=== PATIENT | female | born 1990 | race American Indian/Alaskan Native ===

== ENCOUNTER 2020-09-04 14:34 | Outpatient (CLI) | payer MEDICAID ==
[2020-09-04 14:57] VITALS: BP 119/57
[2020-09-04] MEDS ORDERED: LACTATED RINGERS 1,000 ML IV ONE (16:00)
[2020-09-04 17:21] LABS: Bacteria,Urine 2+ /HPF (Negative); Bilirubin,Urine NEG (Negative); Blood,Urine NEG (Negative); Color,Urine Yellow (Yellow); Mucus,Urine 1+ /HPF; Urobilinogen,Urine < 2.0 mg/dL (<2.0)
--- NOTE | 2020-09-04 18:11 | Ultrasound Report ---
ULTRASOUND OBSTETRIC LIMITED ULTRASOUND BIOPHYSICAL PROFILE INDICATION / CLINICAL INFORMATION: BPP/FILOMENA/PLACENTA LOCATION.. Clinical Gestational Age (GA) in weeks, days: 24 weeks 3 days TECHNIQUE: Transabdominal. COMPARISON: None available. FINDINGS: BREATHING MOVEMENT = 2 GROSS BODY MOVEMENT = 2 TONE = 2 QUALITATIVE AMNIOTIC FLUID VOLUME = 2 TOTAL BIOPHYSICAL SCORE = 8/8 HEART RATE (beats per minute): 149 AMNIOTIC FLUID INDEX (cm) = 13.8 (normal = 7-24 cm) PRESENTATION: Cephalic. ADDITIONAL FINDINGS: Placenta is located within the fundus. No previa or abruption. IMPRESSION: 1. Biophysical Score = 8/8 2. Single viable IUP in a cephalic presentation with normal FILOMENA. 3. Placental location is fundal. Signer Name: Priscilla Gr MD Signed: 09/04/2020 6:06 PM Workstation Name: [id number]
== END 2020-09-04 18:10 | disposition home or self-care (01) ==
LOC: TRG 14:34 → APU 14:35 → TRG 18:10
PROVIDERS: ATTEND Obstetrics & Gynecology
DX: O26.852 Spotting complicating pregnancy, second trimester (principal); O47.02 False labor before 37 completed weeks of gestation, second trimester; Z3A.24 24 weeks gestation of pregnancy
CPT/HCPCS: 59025; 76815; 76819; 81001; 87086; 96360; 96361; J7120

== ENCOUNTER 2020-11-25 21:04 | Outpatient (CLI) | payer MEDICAID ==
[2020-11-25 21:27] VITALS: BP 118/64
[2020-11-25 22:44] LABS: Bacteria,Urine 1+ /HPF (Negative); Bilirubin,Urine NEG (Negative); Blood,Urine NEG (Negative); Color,Urine Yellow (Yellow); Mucus,Urine 2+ /HPF; Protein,Urine <15 mg/dL mg/dL (Negative); Urobilinogen,Urine < 2.0 mg/dL (<2.0)
== END 2020-11-25 23:05 | disposition home or self-care (01) ==
LOC: TRG 21:04 → APU 21:05 → TRG 23:05
PROVIDERS: ATTEND Obstetrics & Gynecology
DX: O47.03 False labor before 37 completed weeks of gestation, third trimester (principal); Z3A.36 36 weeks gestation of pregnancy
CPT/HCPCS: 59025; 81001

== ENCOUNTER 2020-12-08 06:37 | Inpatient (IN) | payer MEDICAID ==
[2020-12-08] MEDS ORDERED: AMPICILLIN/NS 2 GM/100 ML 2 GM/100 ML BAG IV ONE (07:57)
[2020-12-08] MEDS ORDERED: BUTORPHANOL 2 MG/1 ML INJ IV PRN ×2 (07:57→08:00)
[2020-12-08] MEDS ORDERED: TERBUTALINE 1 MG/1 ML INJ SUB-Q PRN (07:57)
[2020-12-08] MEDS ORDERED: LIDOCAINE (2%) 20 MG/1 ML VIAL 20 ML MDV INFILTRATI NR (07:57)
[2020-12-08] MEDS ORDERED: OXYTOCIN DRIP 30 UNITS/500 ML BAG IV SCH ×3 (08:00→10:00)
[2020-12-08] MEDS ORDERED: LACTATED RINGERS 1,000 ML IV SCH (08:00)
[2020-12-08] MEDS ORDERED: fentaNYL 100 MCG/2 ML INJ IV PRN (08:00)
[2020-12-08] MEDS ORDERED: ePHEDrine SULFATE 50 MG/1 ML INJ IV PRN (08:30)
--- NOTE | 2020-12-08 08:57 | History and Physical Report ---
History of Present Illness Date of examination: 12/08/20 Date of admission: 12/08/20 Chief complaint: Pt with c/o uc since 3am History of present illness: 30 y/o presents to [facility] @ 38.2 wks with c/o uc since 3am. She denies LOF or VB, and admits to active FM. Pt states she initiated her pnc @ 31 3/7 wks @ [facility] location. She was sent to [facility] r/t absent nasal bone per us, and intracardiac left sided echogenic focus. Pt reports hx of bronchitis with last attack 5 yrs ago. Hx of 1 c/s r/t breech. Pt is interested in a TOLAC. GBS is neg. She was admitted to L&D for delivery. Past History Past Medical History: other (bronchitis) Past Surgical History: section Family/Genetic History: cancer Social history: single, full code - Obstetrical History Expected Date of Delivery: 12/20/20 Actual Gestation: 38 Week(s) 2 Day(s) : 4 Para: 2 Hx # Term Pregnancies: 2 Number of Pregnancies: 0 Spontaneous Abortions: 1 Induced : 0 Number of Living Children: 2 Medications and Allergies Allergies Allergy/AdvReac Type Severity Reaction Status Date / Time latex Allergy Swelling Verified 09/16/14 13:16 Home Medications Medication Instructions Recorded Confirmed Last Taken Type Vit 10/Iron/Folic/Dha 1 each PO DAILY 09/16/14 09/04/20 09/04/20 10:00 History [Vitafol-Ob+Dha Combo Pack] 1 Active Meds: Active Medications Butorphanol Tartrate (Butorphanol 2 Mg/1 Ml Inj) 1 mg IV Q2H PRN PRN Reason: Pain, Moderate(4-6) LABOR PAIN Butorphanol Tartrate (Butorphanol 2 Mg/1 Ml Inj) 2 mg IV Q2H PRN PRN Reason: Pain , Severe (7-10) Ephedrine Sulfate (Ephedrine Sulfate 50 Mg/1 Ml Inj) 10 mg IV Q2M PRN PRN Reason: Hypotension Fentanyl (Fentanyl 100 Mcg/2 Ml Inj) 100 mcg IV Q2H PRN PRN Reason: Pain,Severe (7-10) LABOR PAIN Oxytocin/Sodium Chloride (Pitocin/Ns 30 Unit/500ml) 30 units in 500 mls @ 2 mls/hr IV TITR ABHINAV; Protocol Lactated Ringer's (Lactated Ringers) 1,000 mls @ 125 mls/hr IV DIRECT ABHINAV Oxytocin/Sodium Chloride (Pitocin/Ns 30 Unit/500ml) 30 units in 500 mls @ 40 mls/hr IV TITR ABHINAV; Protocol Ampicillin Sodium (Ampicillin/Ns 2 Gm/100 Ml) 2 gm in 100 mls @ 100 mls/hr IV ONCE ONE; Protocol Stop: 12/08/20 08:56 Ampicillin Sodium (Ampicillin/Ns 1 Gm/50 Ml) 1 gm in 50 mls @ 100 mls/hr IV Q4H ABHINAV; Protocol Lidocaine (Lidocaine (2%) 20 Mg/1 Ml Vial 20 Ml Mdv) 20 ml INFILTRATI ONCE ONE Stop: 12/08/20 07:58 Mineral Oil (Mineral Oil 30 Ml Oral Liqd) 30 ml PO QHS PRN PRN Reason: Constipation Miscellaneous Medication ( Vit 10/Iron/Folic/Dha [Vitafol-Ob+Dha Combo Pack]) 1 each PO DAILY ABHINAV Terbutaline Sulfate (Terbutaline 1 Mg/1 Ml Inj) 0.25 mg SUB-Q ONCE PRN PRN Reason: Hyperstimulation/Hypertonicity Review of Systems All systems: negative Eyes: deferred Ears, nose, mouth and throat: deferred Breasts: normal Genitourinary: normal appearance Rectal Exam: deferred - Vital Signs Vital signs: Vital Signs Pulse Pulse Ox 92 H 99 12/08/20 07:00 12/08/20 07:00 Temp Pulse Resp BP Pulse Ox 98.5 F 81 18 128/64 98 12/08/20 07:02 12/08/20 07:55 12/08/20 07:02 12/08/20 07:17 12/08/20 07:55 - Physical Exam Breasts: Positive: normal Abdomen: Positive: normal appearance, soft, normal bowel sounds, other (gravid) Genitourinary (Female): Positive: normal external genitalia, normal perenium Vulva: both: normal Vagina: Positive: normal moisture Uterus: Positive: enlarged, normal contour, other (gravid) Adnexa: both: normal Anus/Rectum: Positive: normal perianal skin Extremities: Positive: normal - Obstetrical FHR: auscultation normal, category 1 Uterine Contraction Monitor Mode: External Cervical Dilatation: 5 Cervical Effacement Percentage: 90 station: -3 Uterine Contraction Pattern: Regular Uterine Tone Measurement Phase: Resting Uterine Contraction Intensity: Moderate Results Result Diagrams: 12/08/20 08:42 All other labs normal. Assessment and Plan A: IUP@ 38.2 wks Previous C/S (breech) PNC initiated @ 31 3/7 wks Intracardic left sided echogenic focus US noted nasal bone could not be identified SMA carrier Bronchitis P: Admit to L&D Continuous monitoring Start Pitocin per protocal Pain med/epidural prn Consult re TOLAC Notify NICU of status Anticipate [facility] - Patient Problems (1) Supervision of normal IUP (intrauterine ) in multigravida Current Visit: Yes Status: Acute
[2020-12-08 09:15] LABS: Hematocrit 33.5 % (30.3-42.9); Hemoglobin 11.2 gm/dl (10.1-14.3); Mean Corpuscular HGB Conc 33 % (30-34); Mean Corpuscular Volume 88 fl (79-97); Platelet Count 278 K/mm3 (140-440); Red Blood Count 3.82 M/mm3 (3.65-5.03); Red Cell Distribution Width 14.8 % (13.2-15.2)
[2020-12-08] MEDS ORDERED: OXYTOCIN 10 UNIT/1 ML INJ ONE (09:20)
--- NOTE | 2020-12-08 09:42 | Procedure Note ---
OB Delivery Note - Delivery Date of Delivery: 12/08/20 Surgeon: YUSUF BREAUX Estimated blood loss: 200cc - Vaginal Delivery presentation: vertex Delivery position: OA Intrapartum events: meconium (thick- toni present for delivery) Delivery induction: none Delivery monitor: external FHT Route of delivery: Delivery placenta: spontaneous Delivery cord: nuchal cord (loose x 2) Episiotomy: none Delivery laceration: none Anesthesia: none Delivery comments: Prior to delivery, patient spontaneously ruptured for thick meconium. Patient verbally consented for . Risk, benefits and alternatives to discussed with the patient and patient verbally agreed to proceed with a . Anterior shoulder delivered without difficulty. Nuchal cords x 2 reduced. Baby bulb suctioned at the perineum and again after delivery. Cord clamped and cut. Baby to the warmer. Placenta delivered spontaneously and was delivered in its entirety. Good hemostasis throughout. Mother and baby stable. - Infant A at 1 minute: 8 at 5 minutes: 9 Infant Gender: Male
[2020-12-08] MEDS ORDERED: METHYLERGONOVINE MALEATE 0.2 MG/ML VIAL IM PRN (09:43)
[2020-12-08] MEDS ORDERED: WITCH HAZEL/ GLYCERIN PAD TP PRN (10:00)
[2020-12-08] MEDS ORDERED: LANOLIN/ZINC/DIMETHICONE (LANSINOH) 7 GM TP PRN (10:00)
[2020-12-08] MEDS ORDERED: diphenhydrAMINE 25 MG CAP PO PRN (10:00)
[2020-12-08] MEDS ORDERED: BENZOCAINE/MENTHOL 20/0.5% TOP SPRAY 56 GM TP PRN (10:00)
[2020-12-08] MEDS ORDERED: PROMETHAZINE 25 MG TAB PO PRN (10:00)
[2020-12-08] MEDS ORDERED: ONDANSETRON 4 MG/2 ML INJ IV PRN (10:00)
[2020-12-08] MEDS ORDERED: PROMETHAZINE 25 MG RECT SUPP PR PRN (10:00)
[2020-12-08] MEDS ORDERED: oxyCODONE /ACETAMINOPHEN 5-325MG TAB PO PRN (10:00)
[2020-12-08] MEDS ORDERED: AMPICILLIN/NS 1 GM/50 ML 1 GM/50 ML BAG IV SCH (12:00)
[2020-12-08] MEDS: IBUPROFEN 600 MG TAB PO SCH ×2 (13:10→22:27)
[2020-12-08] MEDS ORDERED: MAGNESIUM HYDROXIDE (MOM) ORAL LIQD UDC PO PRN (22:00)
[2020-12-08] MEDS ORDERED: MINERAL OIL 30 ML ORAL LIQD PO PRN (22:00)
--- NOTE | 2020-12-09 05:47 | Progress Note ---
Assessment and Plan A: PP Day #1 Stable P: Follow Routine Orders D/C home in the AM RTO in 6 Weeks Subjective - Subjective Date of service: 12/09/20 Patient reports: appetite normal, voiding normally, pain well controlled, flatus, ambulating normally [place]: doing well, bottle feeding (and ) Objective - Vital Signs Latest vital signs: Vital Signs Temp Pulse Resp BP BP Pulse Ox 12/09/20 00:00 98.4 F 73 16 119/78 12/08/20 22:27 18 12/08/20 19:30 98.6 F 74 18 114/78 12/08/20 16:53 98.1 F 80 18 118/52 97 12/08/20 11:40 98.1 F 72 18 121/51 98 12/08/20 10:47 72 108/58 12/08/20 10:33 75 116/61 12/08/20 10:17 76 118/55 12/08/20 10:03 80 107/55 12/08/20 09:47 83 120/57 12/08/20 09:42 83 118/59 12/08/20 08:26 75 131/61 12/08/20 07:55 81 98 12/08/20 07:50 78 91 12/08/20 07:45 81 99 12/08/20 07:44 83 93 12/08/20 07:40 83 98 12/08/20 07:35 80 99 12/08/20 07:30 79 98 12/08/20 07:25 80 97 12/08/20 07:20 83 100 12/08/20 07:17 83 128/64 12/08/20 07:15 86 100 12/08/20 07:10 82 100 12/08/20 07:05 75 99 12/08/20 07:02 98.5 F 86 18 128/64 99 12/08/20 07:00 92 H 99 Intake and Output 12/08/20 12/08/20 12/09/20 14:59 22:59 06:59 Intake Total 900 300 Balance 900 300 Intake: Oral 360 Intake, Free Water 540 300 Other: Total, Intake Amount 360 # Voids Void 1 1 Weight 95.254 kg Estimated Blood Loss 200 Patient Weight 12/09/20 06:59 Weight 95.254 kg - Exam Breasts: Present: normal Cardiovascular: Present: Regular rate Lungs: Present: Clear to auscultation, Normal air movement Abdomen: Present: normal appearance, soft, normal bowel sounds Uterus: Present: normal, firm, fundal height below umbilicus Extremities: Present: normal
--- NOTE | 2020-12-09 05:49 | Discharge Summary ---
Providers - Providers Date of Admission: 12/08/20 06:38 Date of discharge: 12/10/20 Attending physician: YOBANY HORAN JR, MD Primary care physician: YOBANY HORAN JR, MD Hospitalization Reason for admission: active labor Delivery: Episiotomy: none Laceration: none Other procedures: none complications: none Discharge diagnosis: IUP at term delivered Condition at discharge: Good Disposition: DC-01 TO HOME OR SELFCARE Plan - Provider Discharge Summary Activity: routine, no sex for 6 weeks, no heavy lifting 4 weeks, no strenuous exercise Diet: routine Instructions: routine Additional instructions: [] Smoking cessation referral if applicable(refer to patient education folder for contact #) [] Refer to [facility] Booklet Call your doctor immediately for: * Fever > 100.5 * Heavy vaginal bleeding ( >1 pad per hour) * Severe persistent headache * Shortness of breath * Reddened, hot, painful area to leg or breast * Drainage or odor from incision. * Keep incision clean and dry at all times and follow doctor's instructions regarding bathing/showering - Follow up plan Follow up: YOBANY HORAN JR, MD [Primary Care Provider] - 6 Weeks
[2020-12-09] MEDS: IBUPROFEN 600 MG TAB PO SCH (05:50)
[2020-12-09 08:59] LABS: Hemoglobin 9.6 gm/dl (10.1-14.3)
[2020-12-09] MEDS ORDERED: PRENATAL VIT PO SCH (10:00)
[2020-12-09] MEDS ORDERED: FOLIC PO SCH (10:00)
[2020-12-09] MEDS ORDERED: IRON PO SCH (10:00)
[2020-12-09] MEDS ORDERED: PRENATAL VIT27-FE FUMARATE-FOLIC ACID VIT TAB PO SCH (10:00)
[2020-12-09] MEDS ORDERED: DHA PO SCH (10:00)
[2020-12-09] MEDS ORDERED: [UNRECOGNIZED DRUG - OTHER] PO SCH (10:00)
[2020-12-09 16:59] VITALS: BP 115/74
== END 2020-12-09 18:28 | disposition home or self-care (01) | DRG 775 ==
LOC: TRG 06:37 → LD 06:37 → APU 06:38 → TRG 07:57 → OB 11:46
PROVIDERS: ADMIT Obstetrics & Gynecology; ATTEND Obstetrics & Gynecology
PROC: 10E0XZZ Delivery of Products of Conception, External Approach (ICD-10-PCS; principal; 2020-12-08)
DX: O77.0 Labor and delivery complicated by meconium in amniotic fluid (principal); O34.211 Maternal care for low transverse scar from previous cesarean delivery; O69.1XX0 Labor and delivery complicated by cord around neck, with compression, not applicable or unspecified; J40 Bronchitis, not specified as acute or chronic; O99.52 Diseases of the respiratory system complicating childbirth; Z20.822 Contact with and (suspected) exposure to COVID-19; Z3A.38 38 weeks gestation of pregnancy; Z37.0 Single live birth; Z80.9 Family history of malignant neoplasm, unspecified
CPT/HCPCS: 36415; 59025; 85014; 85018; 85027; 86850; 86900; 86901; G0378; J0290; J7120; U0003

== ENCOUNTER 2020-12-17 18:11 | Emergency (ER) | payer MEDICAID ==
[2020-12-17 19:22] VITALS: BP 136/88
[2020-12-17 19:49] LABS: Basophils # (Auto) 0.1 K/mm3 (0.0-0.1); Basophils % (Auto) 0.6 % (0.0-1.8); Eosinophils # (Auto) 0.9 K/mm3 (0.0-0.4); Hematocrit 36.9 % (30.3-42.9); Hemoglobin 12.1 gm/dl (10.1-14.3); Lymphocytes # (Auto) 1.5 K/mm3 (1.2-5.4); Lymphocytes % (Auto) 17.7 % (13.4-35.0); Mean Corpuscular HGB Conc 33 % (30-34); Mean Corpuscular Volume 89 fl (79-97); Monocytes # (Auto) 0.8 K/mm3 (0.0-0.8); Monocytes % (Auto) 8.8 % (0.0-7.3); Platelet Count 353 K/mm3 (140-440); Red Blood Count 4.13 M/mm3 (3.65-5.03); Red Cell Distribution Width 15.5 % (13.2-15.2)
[2020-12-17 20:12] LABS: Alanine Aminotransferase 12 units/L (7-56); Albumin 3.6 g/dL (3.9-5); BUN/Creatinine Ratio 9; Blood Urea Nitrogen 8 mg/dL (7-17); Calcium 8.4 mg/dL (8.4-10.2); Hemolysis Index 16
--- NOTE | 2020-12-17 20:15 | Event Note ---
ED Screening Note Date of service: 12/17/20 Time: 20:11 ED Screening Note: Patient is a A1 30 yo AA female who is 10 days post- presents to the ED with c/o acute onset persistent generalized headache, generalized body aches and "heaviness", blurry vision and lightheadedness for the last 10 days. Patient denies vision loss, syncope, chest pain, dyspnea, abdominal pain, fever and chills or seizures. Physical exam is unremarkable. This initial assessment/diagnostic orders/clinical plan/treatment(s) is/are subject to change based on patients health status, clinical progression and re- assessment by fellow clinical providers in the ED. Further treatment and workup at subsequent clinical providers discretion. Patient/guardian urged not to elope from the ED as their condition may be serious if not clinically assessed and managed. Initial orders include: CBC, CMP, UA
[2020-12-17 21:22] LABS: Bilirubin,Urine NEG (Negative); Blood,Urine LG (Negative); Color,Urine Yellow (Yellow); Mucus,Urine 1+ /HPF; Protein,Urine <15 mg/dL mg/dL (Negative); Urobilinogen,Urine < 2.0 mg/dL (<2.0)
--- NOTE | 2020-12-17 23:20 | Emergency Department Report ---
ED General Adult HPI - General Chief complaint: Medical Clearance Stated complaint: OB FOR POSSIBLE PRE ECLAMPSIA Time Seen by Provider: 12/17/20 20:16 Source: patient Mode of arrival: Ambulatory Limitations: No Limitations - History of Present Illness Initial comments: Patient is a A1 30 yo AA female who is 10 days post- presents to the ED with c/o acute onset persistent generalized headache, generalized body aches and "heaviness", blurry vision and lightheadedness for the last 10 days. Patient also states that her blood pressure was slightly elevated from her usual blood pressure although it was not high. Patient states that she was advised to come to the ED for evaluation to rule out preeclampsia. Patient denies vision loss, syncope, chest pain, dyspnea, abdominal pain, fever and chills or seizures. Physical exam is unremarkable. MD Complaint: Headache, lightheadedness -: Sudden, days(s) (10) Location: head Radiation: non-radiation Severity scale (0 -10): 2 Quality: dull Consistency: intermittent Improves with: none Worsens with: none Associated Symptoms: denies other symptoms, headaches, malaise. denies: confusion, chest pain, cough, diaphoresis, fever/chills, loss of appetite, rash, seizure, shortness of breath, syncope, weakness, other Treatments Prior to Arrival: none - Related Data Home Medications Medication Instructions Recorded Confirmed Last Taken Vit 10/Iron/Folic/Dha 1 each PO DAILY 09/16/14 12/08/20 09/04/20 10:00 [Vitafol-Ob+Dha Combo Pack] 1 Allergies Allergy/AdvReac Type Severity Reaction Status Date / Time latex Allergy Swelling Verified 12/08/20 13:12 ED Review of Systems ROS: Stated complaint: OB FOR POSSIBLE PRE ECLAMPSIA Other details as noted in HPI Constitutional: denies: chills, fever Eyes: denies: eye pain, eye discharge, vision change ENT: denies: ear pain, throat pain Respiratory: denies: cough, shortness of breath, wheezing Cardiovascular: denies: chest pain, palpitations Endocrine: no symptoms reported Gastrointestinal: denies: abdominal pain, nausea, vomiting, diarrhea Genitourinary: denies: urgency, dysuria, discharge Musculoskeletal: denies: back pain, joint swelling, arthralgia Skin: denies: rash, lesions Neurological: headache, other (lightheadedness). denies: weakness, paresthesias Psychiatric: anxiety. denies: depression Hematological/Lymphatic: denies: easy bleeding, easy bruising ED Past Medical Hx - Past Medical History Hx Hypertension: No Hx Congestive Heart Failure: No Hx Diabetes: No Hx Deep Vein Thrombosis: No Hx Renal Disease: No Hx Sickle Cell Disease: No Hx Seizures: No Hx Asthma: Yes (attack 2010) Hx COPD: No Hx HIV: No Additional medical history: Miscarriage - Surgical History Additional Surgical History: - Social History Smoking Status: Never Smoker Substance Use Type: None - Medications Home Medications: Home Medications Medication Instructions Recorded Confirmed Last Taken Type Vit 10/Iron/Folic/Dha 1 each PO DAILY 09/16/14 12/08/20 09/04/20 10:00 History [Vitafol-Ob+Dha Combo Pack] 1 ED Physical Exam - General Limitations: No Limitations General appearance: alert, in no apparent distress - Head Head exam: Present: atraumatic, normocephalic, normal inspection - Eye Eye exam: Present: normal appearance, PERRL, EOMI Pupils: Present: normal accommodation - ENT ENT exam: Present: normal exam, normal orophraynx, mucous membranes moist, TM's normal bilaterally, normal external ear exam - Neck Neck exam: Present: normal inspection, full ROM - Respiratory Respiratory exam: Present: normal lung sounds bilaterally. Absent: respiratory distress, wheezes, rales, chest wall tenderness, accessory muscle use, decreased breath sounds, prolonged expiratory - Cardiovascular Cardiovascular Exam: Present: regular rate, normal rhythm, normal heart sounds. Absent: systolic murmur, diastolic murmur, rubs, gallop - GI/Abdominal GI/Abdominal exam: Present: soft, normal bowel sounds. Absent: tenderness, guarding, rebound, hyperactive bowel sounds, hypoactive bowel sounds, organomegaly - Extremities Exam Extremities exam: Present: normal inspection, full ROM, normal capillary refill - Back Exam Back exam: Present: normal inspection, full ROM. Absent: tenderness, CVA tenderness (R), CVA tenderness (L), muscle spasm, paraspinal tenderness, vertebral tenderness - Neurological Exam Neurological exam: Present: alert, oriented X3, CN II-XII intact, normal gait, reflexes normal - Psychiatric Psychiatric exam: Present: normal affect, normal mood - Skin Skin exam: Present: warm, dry, intact, normal color. Absent: rash ED Course Vital Signs 12/17/20 19:19 Temperature 98.2 F Pulse Rate 94 H Respiratory 18 Rate Blood Pressure 136/88 O2 Sat by Pulse 100 Oximetry ED Medical Decision Making - Lab Data Result diagrams: 12/17/20 19:35 12/17/20 19:35 - Medical Decision Making This is a A1 30 yo AA female who is 10 days post- presents to the ED with c/o acute onset persistent generalized headache, generalized body aches and "heaviness", blurry vision and lightheadedness for the last 10 days. Patient also states that her blood pressure was slightly elevated from her usual blood pressure although it was not high. Patient states that she was advised to come to the ED for evaluation to rule out preeclampsia. In the ED, patient is alert and oriented x 3 and is in no acute distress. Patient is hemodynamically stable. Lab test results were reviewed and are all nonactionable including urinalysis. Patient was treated for pain. On reevaluation, patient's vital signs are stable. Patient was therefore discharged home and advised to take Tylenol as needed for pain and to follow up with her ObyGyn Physician in 2-3 days for reevaluation or return to the ED immediately if symptoms get worse. - Differential Diagnosis Tension headache; Preeclampsia; Lightheadedness, dehydration Critical care attestation.: If time is entered above; I have spent that time in minutes in the direct care of this critically ill patient, excluding procedure time. ED Disposition Clinical Impression: Intermittent lightheadedness Acute tension headache Qualifiers: Intractability: not intractable Qualified Code(s): G44.209 - Tension-type headache, unspecified, not intractable Disposition: DC-01 TO HOME OR SELFCARE Is pt being admited?: No Does the pt Need Aspirin: No Condition: Stable Instructions: Tension Headache, Adult, [id number] Additional Instructions: All lab test results were reviewed and are all nonactionable. The vital signs are stable. Your symptoms are likely due to Tension headache. Based on the lab test results are vital signs, it is unlikely that you are developing preeclampsia. Therefore, take Tylenol as needed for pain, and follow up with your ObyGyn Physician in 2-3 days for reevaluation, or return to the ED immediately if symptoms get worse. Referrals: ROSA DELGADILLO MD [Staff Physician] - 2-3 Days Time of Disposition: 23:21 Print Language: IVORIAN
== END 2020-12-18 00:35 | disposition home or self-care (01) ==
LOC: ED 18:11
DX: G44.209 Tension-type headache, unspecified, not intractable (principal); R42 Dizziness and giddiness; Z79.899 Other long term (current) drug therapy; Z91.040 Latex allergy status; Z98.890 Other specified postprocedural states
CPT/HCPCS: 36415; 80053; 81001; 85025